=== PATIENT | female | born 1995 | race African-American/Black ===

== ENCOUNTER 2016-11-07 17:13 | Emergency (ER) | payer BC ==
[~2016-11-07] VITALS: Ht 175.3 cm; Wt 92.5 kg
[2016-11-07 18:25] VITALS: BP 135/76
[2016-11-07 18:45] LABS: NEG OBC UR NEG; POS OBC UR POS
--- NOTE | 2016-11-08 00:42 | ED.ADGEN ---
Past Medical History Past Medical History: No Pertinent History Past Surgical History: No Surgical History Alcohol Use: None Drug Use: None Adult General Chief Complaint Chief Complaint: VAGINAL BLEEDING HPI HPI Patient is a 21 year old woman, with no significant past history, who presents to the emergency department with a concern that she may be and experiencing vaginal bleeding. Patient states that she had a last menstrual period about 2 months ago, she states that she has been experiencing spotting during that time period, but no passage of clots or large amount of bleeding, states that she's had regular periods in the past. She states that she had a positive test at home a few days ago, and then developed recurrent spotting, prompting her to come to the ED for evaluation. She denies any abdominal pain, any nausea or vomiting, any flank pain, urinary complaints, any discharge or drainage from the vagina. She has been sexually active with her boyfriend, but has no concerns about possible exposure, and had a STI evaluation performed 2 months ago in [place]. She does not use any control currently. Review of Systems Review of Systems Constitutional: Denies fever or chills. [] Eyes: Denies change in visual acuity. [] HENT: Denies nasal congestion or sore throat. [] Respiratory: Denies cough or shortness of breath. [] Cardiovascular: Denies chest pain or edema. [] GI: Denies abdominal pain, nausea, vomiting, bloody stools or diarrhea. [] : Denies dysuria. [] Vaginal spotting. Musculoskeletal: Denies back pain or joint pain. [] Integument: Denies rash. [] Neurologic: Denies headache, focal weakness or sensory changes. [] Endocrine: Denies polyuria or polydipsia. [] Lymphatic: Denies swollen glands. [] Psychiatric: Denies depression or anxiety. [] Allergies Allergies Allergies Coded Allergies Type Severity Reaction Last Updated Verified No Known Drug Allergies 11/02/15 No Physical Exam Physical Exam Constitutional: Well developed, well nourished, no acute distress, non-toxic appearance. [] HENT: Normocephalic, atraumatic, bilateral external ears normal, oropharynx moist, no oral exudates, nose normal. [] Eyes: PERRLA, EOMI, conjunctiva normal, no discharge. [] Neck: Normal range of motion, no tenderness, supple, no stridor. [] Cardiovascular:Heart rate regular rhythm, no murmur , S1, S2, rubs or gallops. [ ] Lungs & Thorax: Bilateral breath sounds clear to auscultation no wheezing, rhonchi, rales. [] Abdomen: Bowel sounds normal, soft, no tenderness, no rebound, rigidity, no guarding, no masses, no pulsatile masses. [] Skin: Warm, dry, no erythema, no rash. [] Back: No tenderness, no CVA tenderness. [] Extremities: No tenderness, no cyanosis, no clubbing, ROM intact, no edema. [] Neurologic: Alert and oriented X 3, normal motor function, normal sensory function, no focal deficits noted. [] Psychologic: Affect normal, judgement normal, mood normal. [] Current Patient Data Vital Signs Vital Signs Date Time Temp Pulse Resp B/P Pulse Ox O2 Delivery O2 Flow Rate FiO2 11/07/16 18:25 98.1 109 18 135/76 99 Room Air 98.1 Lab Values Laboratory Tests Test 11/07/16 18:23 Urine Test Negative (NEG) EKG EKG Not indicated. [] Radiology/Procedures Radiology/Procedures Not indicated. [] Course & Med Decision Making Course & Med Decision Making Pertinent Labs and Imaging studies reviewed. (See chart for details) Patient's test is negative in the emergency department. Discussed this with patient, she is experiencing no other concerning symptoms, and has history of irregular periods, which it appears she has been experiencing for the past 2 months, and does not currently have an [facility]. She declined pelvic examination or additional evaluation at this point, as she is having any other symptoms. Has no concerns for STI exposures. She was given contact information for Dr. Munoz of [facility], and given clear and detailed instructions regarding concerning symptoms that prompt return. Patient voiced understanding and agreement, discharged home with plan as above. Dragon Disclaimer Dragon Disclaimer This electronic medical record was generated, in whole or in part, using a voice recognition dictation system. Departure Impression: Primary Impression: Dysfunctional uterine bleeding Disposition: HOME, SELF-CARE Condition: IMPROVED JASVIR LEON DO Nov 08, 2016 00:42
== END 2016-11-07 20:00 | disposition home or self-care (01) ==
LOC: ER 17:21
DX: N93.8 Other specified abnormal uterine and vaginal bleeding (principal)
CPT/HCPCS: 81025; 99282

== ENCOUNTER 2018-02-23 10:58 | Emergency (ER) | payer SELFPAY ==
[2018-02-23 11:27] LABS: URINE HCG POC HCG NEGATIVE (Negative)
== END 2018-02-23 12:02 | disposition home or self-care (01) ==
LOC: ER 12:02
DX: H66.92 Otitis media, unspecified, left ear (principal); Z32.02 Encounter for pregnancy test, result negative
CPT/HCPCS: 81025; 99283